=== PATIENT | female | born 1970 | race Caucasian/White ===

== ENCOUNTER → 2020-02-12 | Day surgery (SDC) | payer BC, OTHER ==
[2020-02-07 10:26] LABS: BASOPHILS % 0.6 % (0.0-1.0); EOSINOPHILS % 0.6 % (0.0-6.0); HEMATOCRIT 37.6 % (34.2-44.1); LYMPHOCYTES # (AUTO) 2.2 (1.0-3.2); LYMPHOCYTES % 33.5 % (18.0-39.1); MEAN CORPUSCULAR HEMOGLOBIN 28.4 pg (28-32); MEAN CORPUSCULAR HGB CONC 31.9 g/dL (31-35); MEAN CORPUSCULAR VOLUME 88.9 fL (81-99); MONOCYTES # (AUTO) 0.4 (0.2-0.8); MONOCYTES % 6.6 % (4.4-11.3); NEUTROPHILS # (AUTO) 3.9 (2.1-6.9); NEUTROPHILS % 58.6 % (38.7-80.0); PLATELET COUNT 379 x10e3/uL (140-360); RED BLOOD COUNT 4.23 x10e6/uL (3.6-5.1); RED CELL DISTRIBUTION WIDTH 12.4 % (11.7-14.4)
[2020-02-07 10:49] LABS: ALANINE AMINOTRANSFERASE 14 IU/L (0-55); ALBUMIN/GLOBULIN RATIO 1.3 (0.8-2.0); ALKALINE PHOSPHATASE 69 IU/L (40-150); ANION GAP 10.2 mmol/L (8-16); BLOOD UREA NITROGEN 12 mg/dL (7-26); BUN/CREATININE RATIO 16 (6-25); CALCIUM 9.3 mg/dL (8.4-10.2); CARBON DIOXIDE 27 mmol/L (22-29); CHLORIDE 105 mmol/L (98-107); CREATININE, SERUM 0.73 mg/dL (0.57-1.11); EST GLOMERULAR FILTRATION RATE > 60 ML/MIN (60-); GLUCOSE 83 mg/dL (74-118); POTASSIUM 4.2 mmol/L (3.5-5.1); SODIUM 138 mmol/L (136-145)
[~2020-02-12] MED LIST: BUPIVACAINE 0.25%/EPI 30ML SDV INJ ONE; BUTALB-ACETAMI1 EAC2; CEFAZOLIN SOD 1 GM VIAL ONE; DEXAMETHASONE SOD PHOS INJ 4 MG/ML VIAL ONE; ESTROGENS CONJUGATED VAGINAL CR 45 GM TUBE PV ONE; FENTANYL CITRATE/PF 100MCG/2 ML INJ ONE; KETOROLAC TROMETHAMINE 30 MG/ML VIAL ONE; LIDOCAINE HCL 2% LOCAL INJ 5 ML SDV VIAL INJ ONE; MIDAZOLAM HCL 2 MG/2 ML VIAL ONE; ONDANSETRON HCL INJ 2MG/ML 2ML 2 MG/ML VIAL ONE; PROPOFOL IV EMULSION 10 MG/ML 20 ML VIAL ONE; SEVOFLURANE INHAL SOLN 250 ML PEN BTL ONE
[2020-02-12 11:05] VITALS: BP 117/86
--- NOTE | 2020-02-12 11:23 | Operative Report ---
DATE OF PROCEDURE: 02/12/2020 SURGEON: Steff Mcgowan MD PRECISION AGRICULTURE TECHNICIAN: Sarahi Salazar M.D. PREOPERATIVE DIAGNOSIS: Stress incontinence. POSTOPERATIVE DIAGNOSIS: Stress incontinence. PROCEDURES: 1. Transobturator tape placement. 2. Cystoscopy. INDICATIONS FOR THE PROCEDURE: The patient is a 49-year-old, who has stress incontinence. She was counseled on the options and she opted for the transobturator placement. She was counseled on the risks of the procedure as well as the benefits and she agrees to proceed with the proposed procedure. URINE OUTPUT: Unmeasured. ESTIMATED BLOOD LOSS: Minimal. SPECIMENS: None. DESCRIPTION OF PROCEDURE: The patient was taken to the operating room, where she was placed under general anesthesia and given Ancef 2 g. SCDs were placed prior to induction. She was placed in dorsal lithotomy position in candy cane stirrups and was prepped and draped in the usual sterile fashion. Time-out was confirmed to confirm correct patient, site, and procedure. Marcaine 1% with epi was placed in the vaginal mucosa, intermediate through between the meatus and the ureterovesical junction, which was identified using the Velasquez bulb and each side of the ureter deep to the endopelvic fascia. A 1.5 cm incision was made vertically at the level of the midurethra through the vaginal mucosa. A combination of the blunt and sharp dissection was performed until the pubic rami was palpable bilaterally. The connected tissues were then dissected bluntly and sharply to allow placement of Obtryx II trocars. A 5 mm incision was made with a scalpel at the mid crural line bilaterally. The trocar was then placed through the incision on the patient's left side piercing the obturator membrane and got along posterior aspect of the pubic rami until the trocar was brought out through the vaginal mucosa. TVT-O sling was then placed in the trocar and guided out to the trocar tract. This was repeated on the opposite side. The TVT-O was then pulled to the point loosely underlying the urethra allowing for space . Velasquez was then removed and the cystoscopy was performed. The bladder and urethra were inspected carefully and no perforation was noted. The cystoscope was removed, and the bladder was emptied. The plastic sheaths were then removed from the sling and were cut below the skin level at the exit point. The skin punctures were closed with Dermabond. The vaginal mucosa was closed with 3-0 Vicryl running suture. The bladder was emptied. Excellent hemostasis was noted. All counts were correct x2. The tolerated the procedure well and was taken tot the recovery room in stable condition. MD JANEL Hernandez/RENÉEL /[id number]
== END | disposition home or self-care (01) ==
LOC: OR 06:41
PROVIDERS: ATTEND Obstetrics & Gynecology
DX: N39.3 Stress incontinence (female) (male) (principal); F41.9 Anxiety disorder, unspecified; I49.9 Cardiac arrhythmia, unspecified; Z01.810 Encounter for preprocedural cardiovascular examination; Z01.812 Encounter for preprocedural laboratory examination; Z11.59 Encounter for screening for other viral diseases; Z98.82 Breast implant status
CPT/HCPCS: 36415; 57288; 80053; 81025; 84702; 85025; 93005; C1781; J0690; J1100; J1885; J2001; J2250; J2405; J2704; J3010; U0002